=== PATIENT | male | born 1950 | race Caucasian/White ===

== ENCOUNTER 2017-01-27 06:56 | Inpatient (IN) | payer OTHER, MEDICARE ==
[2017-01-21 17:03] LABS: BASOPHILS 0.7 %; BASOPHILS ABSOLUTE 0.05 10/3/uL (0.0-0.16); EOSINOPHILS 8.5 %; EOSINOPHILS ABSOLUTE 0.57 10/3/uL (0.0-0.53); HEMATOCRIT 38.1 % (40.0-51.0); HEMOGLOBIN 13.4 g/dL (13.6-17.8); IMMATURE GRANULOCYTES 0.1 %; IMMATURE GRANULOCYTES ABSOLUTE 0.01 10/3/uL (0.0-0.11); LYMPHOCYTES 27.5 %; LYMPHOCYTES ABSOLUTE 1.85 10/3/uL (0.67-4.30); MEAN CORPUS HGB CONC 35.2 g/dL (32.0-36.0); MEAN CORPUSCULAR HEMOGLOB 33.8 pg (26.0-34.0); MONOCYTES 7.9 %; MONOCYTES ABSOLUTE 0.53 10/3/uL (0.21-1.20); NEUTROPHILS 55.3 %; NEUTROPHILS ABSOLUTE 3.72 10/3/uL (2.02-8.40); PLATELET COUNT 146 10/3/uL (150-400); RBC DISTRIBUTION WIDTH 13.1 % (12.0-16.0); RED CELL COUNT 3.97 10/6/uL (4.7-6.1); WHITE BLOOD CELLS 6.7 10/3/uL (4.5-10.5)
[2017-01-21 17:04] LABS: MANUAL DIFF NO %
[2017-01-21 17:11] LABS: PROTIME (NOT ORD) 13.5 SEC (12.0-14.5)
[2017-01-21 17:28] LABS: A/G RATIO 1.1 (0.7-1.9); ALBUMIN 3.7 G/DL (3.5-5.0); ALKALINE PHOSPHATASE 79 U/L (45-117); CALCIUM, SERUM 8.8 MG/DL (8.5-10.4); CHLORIDE, SERUM 105 MMOL/L (96-112); CO2 (CARBON DIOXIDE) 31 MMOL/L (24-34); CREATININE 0.95 MG/DL (0.70-1.30); GFR AFRICAN AMERICAN 96 ML/MIN (>=60); GFR NON AFRICAN AMERICAN 83 ML/MIN (>=60); GLOBULIN 3.3 G/DL (2.5-4.1); GLUCOSE, SERUM 97 MG/DL (60-99); POTASSIUM, SERUM 3.9 MMOL/L (3.5-5.3); SGOT(AST) 21 U/L (5-40); SGPT(ALT) 24 U/L (5-65); SODIUM, SERUM 143 MMOL/L (135-148); TOTAL BILIRUBIN 0.3 MG/DL (0-1.2)
[2017-01-21 17:30] LABS: BUN (BLOOD UREA NITROGEN) 18 MG/DL (6-23)
[2017-01-21 18:37] LABS: ASCORBIC ACID (UR NOT ORDER) 40 (NEG); BILIRUBIN, URINE NEGATIVE (NEG); KETONE, URINE NEGATIVE (NEG); LEUKOCYTE ESTERASE(NOT OR NEG (NEG); WBC (NOT ORDERED) (RFLEX) < 1 (0-5)
--- NOTE | ~2017-01-27 | OP ---
Record Of Operation [facility] [address] [place]. [address] NAME: MERLE EDMONDSON : 50 STATUS : ADM IN PAT#: [id number] AGE: 66 ADM/REG DATE : 01/27/17 MR#: [id number] REPORT SERV DATE: 01/27/17 DICTATED BY: CHERI MEDINA JR. DATE: 01/27/17 REPORT STATUS : Draft TRANSCRIBED BY: MODCarlos DATE: 01/27/17 DATE OF PROCEDURE: 01/27/2017 PREOPERATIVE DIAGNOSES: Non-small cell lung cancer, right upper lobe, rheumatoid arthritis, on immunosuppression, hypertension, chronic obstructive pulmonary disease, history of seizure disorder, type 2 diabetes mellitus, non-insulin dependent, carotid artery disease, and atherosclerosis. POSTOPERATIVE DIAGNOSES: Non-small cell lung cancer, right upper lobe, rheumatoid arthritis, on immunosuppression, hypertension, chronic obstructive pulmonary disease, history of seizure disorder, type 2 diabetes mellitus, non-insulin dependent, carotid artery disease, and atherosclerosis. NAME OF OPERATION: Bronchoscopy, right thoracoscopy with right upper lobectomy, complete mediastinal node dissection, redd stations 4R, 7, 9, 10R, 11R, and intercostal nerve block. SURGEON: Cheri Medina M.D. RESIDENT SURGEON: Kishor Morin MD WATER MAIN PIPE LAYER: Jered Farfan. ANESTHESIA: General endotracheal. FINDINGS: The patient was noted to have severely emphysematous lung tissue. He had an incomplete minor fissure. There was also a lot of emphysematous lung tissue surrounding the hilum. He is at increased risk for air leaks. The tumor was well contained within the right upper lobe. The margins were negative. Final pathology is pending. There was no endobronchial lesions or contraindication to resection seen on bronchoscopy. Mucous secretions were evacuated. DETAILS OF OPERATION: After adequate general anesthesia, the patient was intubated. Bronchoscopy was performed noting the above findings. A left-sided double-lumen endotracheal tube was then placed. The patient was then positioned in the left lateral decubitus position. The right chest was prepped and draped in routine sterile fashion. A small incision made overlying the lower intercostal space. A separate anterior trocar incision was also made. Through these two incision sites, above findings were noted. There were no significant adhesions. The chest was explored noting the resectability of the right upper lobe non-small cell lung cancer. So, we should proceed on with surgery. The inferior pulmonary ligament was divided. The inferior pulmonary vein was identified and preserved. The hilar structures were also dissected out. The superior pulmonary vein was then transected, preserving the middle lobe branch. The pulmonary arterial branch was then divided with multiple firings of a vascular stapler. The bronchus was divided with LINDA stapler. The fissure was divided with multiple firings of LINDA stapler. There was a lot of inflammation at the hilar structures around the pulmonary artery. There was a lot of lymphatic tissue in this area that looked benign and more likely granulomas. Once, we were Record Of Operation [address] [id number] NAME: MERLE EDMONDSON : 50 STATUS : ADM IN [facility]#: [id number] AGE: 66 ADM/REG DATE : 01/27/17 MR#: [id number] REPORT SERV DATE: 01/27/17 DICTATED BY: CHERI MEDINA JR. DATE: 01/27/17 REPORT STATUS : Draft TRANSCRIBED BY: BREE DATE: 01/27/17 able to separate the lobes using multiple firings of LINDA stapler with tissue reinforcements. The specimen was placed in a specimen bag and brought through the anterior trocar site. Nodes from the right paratracheal, subcarinal, inferior pulmonary ligament, hilar regions were then removed. The chest was thoroughly irrigated with sterile water. An intercostal block was then performed. A 28-[place] chest tube was placed. The lung was reinflated. The trocar sites were closed with running Vicryl sutures. The skin was closed with running monofilament suture. A Dermabond dressing was applied. The procedure was terminated at this point. The patient tolerated the procedure well and taken back to recovery room in stable condition. FRANK/BREE Cheri Medina Jr., M.D. / [id number] CC: Juno Salgado Jr., M.D. Hisham F. Qutob, MD
[~2017-01-27 06:56] MED LIST: ASABAYER PO; FOLIC; KEPPRA750 MG PO; LEXAPRO10 PO; LOP50 PO; MOBIC15 MG PO; MTX2.5; MTX2.5 PO; NEUR800 PO; NORCO1 TAB PO; ULTRAM ER300 MG PO; ZOCOR20
[2017-01-28 05:52] LABS: BASOPHILS 0.1 %; BASOPHILS ABSOLUTE 0.01 10/3/uL (0.0-0.16); EOSINOPHILS 0.4 %; EOSINOPHILS ABSOLUTE 0.03 10/3/uL (0.0-0.53); HEMATOCRIT 35.3 % (40.0-51.0); HEMOGLOBIN 12.3 g/dL (13.6-17.8); IMMATURE GRANULOCYTES 0.4 %; IMMATURE GRANULOCYTES ABSOLUTE 0.03 10/3/uL (0.0-0.11); LYMPHOCYTES 15.1 %; LYMPHOCYTES ABSOLUTE 1.22 10/3/uL (0.67-4.30); MEAN CORPUS HGB CONC 34.8 g/dL (32.0-36.0); MEAN CORPUSCULAR HEMOGLOB 32.9 pg (26.0-34.0); MEAN CORPUSCULAR VOLUME 94.4 fL (80-100); MEAN PLATELET VOLUME 9.4 fL (9.2-13.0); MONOCYTES 10.3 %; MONOCYTES ABSOLUTE 0.83 10/3/uL (0.21-1.20); NEUTROPHILS 73.7 %; NEUTROPHILS ABSOLUTE 5.96 10/3/uL (2.02-8.40); PLATELET COUNT 149 10/3/uL (150-400); RBC DISTRIBUTION WIDTH 13.1 % (12.0-16.0); RED CELL COUNT 3.74 10/6/uL (4.7-6.1); WHITE BLOOD CELLS 8.1 10/3/uL (4.5-10.5)
[2017-01-28 05:53] LABS: MANUAL DIFF NO %
[2017-01-28 05:56] LABS: BUN (BLOOD UREA NITROGEN) 14 MG/DL (6-23); CALCIUM, SERUM 8.3 MG/DL (8.5-10.4); CHLORIDE, SERUM 104 MMOL/L (96-112); CO2 (CARBON DIOXIDE) 27 MMOL/L (24-34); CREATININE 0.98 MG/DL (0.70-1.30); GFR AFRICAN AMERICAN 93 ML/MIN (>=60); GFR NON AFRICAN AMERICAN 80 ML/MIN (>=60); GLUCOSE, SERUM 97 MG/DL (60-99); POTASSIUM, SERUM 4.1 MMOL/L (3.5-5.3); SODIUM, SERUM 140 MMOL/L (135-148)
[2017-01-28] MEDS ORDERED: ZOFRAN4 PO (13:13)
[2017-01-28] MEDS ORDERED: PCET PO (13:13)
== END 2017-01-28 14:26 | disposition home or self-care (01) | DRG 165 ==
LOC: SDC 06:56 → SDC/OF 13:13 → 5NO 14:52
PROVIDERS: Thoracic Surgery (Cardiothoracic Vascular Surgery)
PROC: 0BJ08ZZ Inspection of Tracheobronchial Tree, Via Natural or Artificial Opening Endoscopic (ICD-10-PCS; 2017-01-27)
PROC: 3E0T3BZ Introduction of Anesthetic Agent into Peripheral Nerves and Plexi, Percutaneous Approach (ICD-10-PCS; 2017-01-27)
PROC: 0BTC4ZZ Resection of Right Upper Lung Lobe, Percutaneous Endoscopic Approach (ICD-10-PCS; principal; 2017-01-27 08:45)
PROC: 07B74ZZ Excision of Thorax Lymphatic, Percutaneous Endoscopic Approach (ICD-10-PCS; 2017-01-27 08:45)
DX: C34.11 Malignant neoplasm of upper lobe, right bronchus or lung (principal); J44.9 Chronic obstructive pulmonary disease, unspecified; I10 Essential (primary) hypertension; M06.9 Rheumatoid arthritis, unspecified; E11.9 Type 2 diabetes mellitus without complications; G40.909 Epilepsy, unspecified, not intractable, without status epilepticus; Z87.891 Personal history of nicotine dependence; E78.2 Mixed hyperlipidemia
CPT/HCPCS: 36415; 71020; 80048; 80053; 81001; 82962; 85025; 85610; 86850; 86900; 86901; 87641; 88305; 88307; 88309; 88313; 88331; 93005; 94010; 94640; 94726; 94729; A9270-GY; J0690; J2250; J2370; J2405; J2710; J2795; J3010